=== PATIENT | male | born 1990 | race African-American/Black ===

== ENCOUNTER 2017-05-20 14:27 | Emergency (ER) | payer SELFPAY | END 2017-05-20 15:39 | disposition home or self-care (01) | LOC: ERS 14:27 | DX: S46.911A Strain of unspecified muscle, fascia and tendon at shoulder and upper arm level, right arm, initial encounter (principal); X50.9XXA Other and unspecified overexertion or strenuous movements or postures, initial encounter | CPT/HCPCS: 99281 ==

== ENCOUNTER 2017-12-07 14:48 | Emergency (ER) | payer SELFPAY ==
[2017-12-07] MEDS ORDERED: Ibuprofen 200 MG TAB ONE (15:41)
== END 2017-12-07 15:47 | disposition home or self-care (01) ==
LOC: ERS 14:48
DX: J02.9 Acute pharyngitis, unspecified (principal); J06.9 Acute upper respiratory infection, unspecified
CPT/HCPCS: 99282

== ENCOUNTER 2018-01-08 18:36 | Emergency (ER) | payer SELFPAY | END 2018-01-08 19:05 | disposition home or self-care (01) | LOC: ERS 18:36 | DX: M26.602 Left temporomandibular joint disorder, unspecified (principal) | CPT/HCPCS: 99283 ==

== ENCOUNTER 2018-02-01 07:49 | Emergency (ER) | payer SELFPAY | END 2018-02-01 08:12 | disposition home or self-care (01) | LOC: ERS 07:49 | DX: K02.9 Dental caries, unspecified (principal) | CPT/HCPCS: 99282 ==